=== PATIENT | male | born 1950 | race Two or more races ===

== ENCOUNTER → 2024-09-05 | Outpatient (CLI) | payer MEDICARE, SELFPAY ==
--- NOTE | 2024-09-05 | XR_ITS ---
Examination: Sinus series 3 views TECHNIQUE: Keli Milner lateral sinus series 3 views Exam date and time: September 05, 2024 1201 hours INDICATIONS: Sinus pressure and pain beginning 2 weeks ago. FINDINGS: Total opacification left maxillary antrum Opacity in the frontal ethmoid air cells as well as sphenoid sinuses IMPRESSION: Chronic pansinusitis, severe left maxillary antrum
--- NOTE | 2024-09-05 | XR_ITS ---
Examination: PA lateral chest 2 views TECHNIQUE: Upright PA lateral chest 2 views Exam date and time: September 05, 2024 1159 hours INDICATIONS: Chest pain coughing beginning 2 weeks ago. FINDINGS: Normal heart size No lobar pneumonia No pulmonary edema Mild pectus deformity IMPRESSION: No pneumonia or pulmonary edema
== END | disposition home or self-care (01) ==
PROVIDERS: PCP Family Medicine; Referring Provider Family Medicine; Visit Provider Family Medicine
DX: J32.9 Chronic sinusitis, unspecified (principal); J32.4 Chronic pansinusitis; J42 Unspecified chronic bronchitis
CPT/HCPCS: 70220; 71046

== ENCOUNTER → 2024-10-15 | Outpatient (CLI) | payer MEDICARE, SELFPAY ==
--- NOTE | 2024-10-15 17:00 | XR_ITS ---
Examination: CT maxillofacial, without intravenous contrast. 2-D sagittal reconstructions. 3-D reconstructions. Date and time of exam:October 15, 2024 1631 hrs. Indications: Sinus pressure and pain nasal drip 6 months CTDI: vol (mGy):7.56 DLP: (mGycm):107 Technique: Multiple axial images of maxillofacial region, 3.0 mm slice thickness. 2-D sagittal and coronal reconstructions. 3-D reconstructions. Low dose protocols were performed. One or more of the following dose reduction techniques were used; automated exposure control, adjustment of the mA and/or KV according to patient size, use of iterative reconstruction technique. Findings: Frontal air cells clear Moderate mucosal thickening in the ethmoid air cells No occlusion ostiomeatal complexes Mild hypertrophy inferior nasal turbinates Mucosal thickening maxillary antra measuring up to 3 mm No significant deviation nasal septum No fluid levels No retention cysts No cortical bone destruction No nasopharyngeal mass Impression: Moderate chronic ethmoid sinus disease Mild chronic maxillary antral sinus disease Moderate hypertrophy inferior nasal turbinates
== END | disposition home or self-care (01) ==
LOC: CCTX 16:20
PROVIDERS: Referring Provider Family Medicine; Visit Provider Family Medicine
DX: J32.8 Other chronic sinusitis (principal); J34.3 Hypertrophy of nasal turbinates
CPT/HCPCS: 70486